=== PATIENT | male | born 1990 | race Caucasian/White ===

== ENCOUNTER 2017-07-25 11:11 | Emergency (ER) | payer SELFPAY ==
[~2017-07-25] VITALS: Ht 172.7 cm; Wt 70.0 kg
[~2017-07-25 11:11] MED LIST: CHLO.12%30 SSP; CLIN150 PO; IBUP800T23 PO
[2017-07-25 11:14] VITALS: BP 155/90; PULSE 76; RESP 18; TEMP 98.5; O2SAT 96
--- NOTE | 2017-07-25 12:45 | PD ---
HPI Chief Complaint: Psychiatric Symptoms Time Seen by Provider: 12:10 Travel History International Travel<30 days: No Contact w/Intl Traveler<30days: No Traveled to known affect area: No History of Present Illness HPI Patient is a 26-year-old male who comes in with his mom because he would like to detox from opioids. He says he injects himself with 25 Dilaudid every night. His mom is concerned that he will kill himself. He denies any suicidal ideation. He says he is worried about the detox symptoms, so he continues to use. He has no medical complaints at this time. He did inject himself just prior to coming in. [facility] Past Medical History Medical History: Denies Significant Hx Diminished Hearing: No Tetanus Vaccination: > 5 Years Influenza Vaccination: No ?: Not Past Surgical History Surgical History: No Previous Surgery Social History Alcohol Use: Yes (PER PT OCCASIONAL DENIES USE TODAY) Tobacco Use: Yes (PKG DAILY) Substance Use: Yes (DILAUDID) Allergies-Medications (Allergen,Severity, Reaction): Coded Allergies: No Known Allergies (Verified Allergy, Mild, 07/25/17) Reported Meds & Prescriptions Reported Meds & Active Scripts Active Peridex Oral Rinse (Chlorhexidine Gluconate) 0.12 % Gretchen 15 Ml SSP BID Ibuprofen 800 Mg Tab 800 Mg PO TID PRN Cleocin (Clindamycin HCl) 150 Mg Cap 300 Mg PO Q6 10 Days Review of Systems General / Constitutional: No: Fever, Chills HENT: No: Headaches, Lightheadedness Cardiovascular: No: Chest Pain or Discomfort Respiratory: No: Shortness of Breath Gastrointestinal: No: Nausea, Vomiting Skin: No Rash, No Change in Pigmentation Neurologic: No: Weakness, Dizziness Physical Exam Narrative GENERAL: Awake and alert, no acute distress. SKIN: Focused skin assessment warm/dry. No wounds or signs of infection. HEAD: Atraumatic. Normocephalic. EYES: Pupils equal and round. No scleral icterus. Extraocular movements intact. ENT: No nasal bleeding or discharge. Mucous membranes pink and moist. CARDIOVASCULAR: Regular rate and rhythm. No murmur appreciated. RESPIRATORY: No accessory muscle use. Clear to auscultation. Breath sounds equal bilaterally. MUSCULOSKELETAL: No obvious deformities. No clubbing. No cyanosis. No edema. NEUROLOGICAL: Awake and alert. No obvious cranial nerve deficits. Motor grossly within normal limits. Normal speech. PSYCHIATRIC: Appropriate mood and affect; insight and judgment normal. Data Data Last Documented VS Vital Signs Date Time Temp Pulse Resp B/P (MAP) Pulse Ox O2 Delivery O2 Flow Rate FiO2 07/25/17 11:14 98.5 76 18 155/90 (111) 96 MDM Medical Decision Making Medical Screen Exam Complete: Yes Emergency Medical Condition: Yes Differential Diagnosis Intoxication versus depression versus encounter for detox Narrative Course Patient is a 26-year-old male who comes in with his mom seeking detox. He adamantly denies any suicidal thoughts at this time. He does say that he wants to quit using Dilaudid, but he does not want to go through withdrawal. His mother, appropriately so is worried about him. I explained to them that we do not have detox capabilities and that he should go to [facility]. We did call them, they do not have any beds at this time, but advised that he come early tomorrow morning and they should be able to get him in. He is advised to stop using drugs. Advised to return anytime for any symptoms or concerns. Mom is comfortable with this plan at this time. Diagnosis Primary Impression: Opioid abuse Referrals: [facility] for appointment Patient Instructions: General Instructions, Narcotic Abuse (ED) Additional Instructions: Go to [facility] tomorrow morning for detox. Return at any time for any worsening symptoms. Disposition: 01 DISCHARGE HOME Condition: Stable Nafisa Price MD Jul 25, 2017 12:45
== END 2017-07-25 12:57 | disposition home or self-care (01) ==
LOC: NEPD 11:11
DX: F11.10 Opioid abuse, uncomplicated (principal); F17.200 Nicotine dependence, unspecified, uncomplicated
CPT/HCPCS: 99282

== ENCOUNTER 2017-07-29 18:11 | Emergency (ER) | payer SELFPAY ==
[2017-07-29 18:24] VITALS: BP 138/83; PULSE 90; RESP 16; TEMP 98.6; O2SAT 100
--- NOTE | 2017-07-29 20:42 | PD ---
HPI Chief Complaint: Injury Time Seen by Provider: 20:31 Travel History International Travel<30 days: No Contact w/Intl Traveler<30days: No Traveled to known affect area: No History of Present Illness HPI 26-year-old [id number] male presents for evaluation of right hand pain. He reports a 1 hour prior to arrival he punched a within wall because he was frustrated. He now has pain in the right hand primarily over the right fourth and fifth metacarpals, throbbing, constant, worse with movement or palpation. He has a small abrasion overlying the dorsum of the right hand, last tetanus vaccination unknown. He denies any other injuries and he has no other complaints at this time. [facility] Past Medical History Diminished Hearing: No ?: Not Social History Alcohol Use: Yes (PER PT OCCASIONAL DENIES USE TODAY) Tobacco Use: Yes (PKG DAILY) Substance Use: Yes (DILAUDID) Allergies-Medications (Allergen,Severity, Reaction): Coded Allergies: No Known Allergies (Verified Allergy, Mild, 07/25/17) Reported Meds & Prescriptions Reported Meds & Active Scripts Active Peridex Oral Rinse (Chlorhexidine Gluconate) 0.12 % Gretchen 15 Ml SSP BID Ibuprofen 800 Mg Tab 800 Mg PO TID PRN Cleocin (Clindamycin HCl) 150 Mg Cap 300 Mg PO Q6 10 Days Review of Systems Musculoskeletal: Positive: Limited ROM, Pain Skin: Positive Other (Positive for abrasion, bleeding) Neurologic: No: Paresthesia Physical Exam Narrative GENERAL: Well-developed well-nourished male in no acute distress SKIN: Warm and dry. Small abrasion with associated ecchymosis on the dorsum of the right hand overlying the fourth and fifth metacarpals. CARDIOVASCULAR: Regular rate and rhythm. No murmur appreciated. RESPIRATORY: No accessory muscle use. Clear to auscultation. Breath sounds equal bilaterally. GASTROINTESTINAL: Abdomen soft, non-tender, nondistended. Hepatic and splenic margins not palpable. MUSCULOSKELETAL: Skin as noted above. Tenderness to palpation to right hand overlying the fourth and fifth metacarpals. There is limited flexion and extension of the right fourth and fifth fingers secondary to pain and bruising. Capillary refill less than 2 seconds all digits right hand. Distal sensation preserved. 2+ radial pulse. NEUROLOGICAL: Awake and alert. No obvious cranial nerve deficits. Motor grossly within normal limits. Normal speech. Data Data Last Documented VS Vital Signs Date Time Temp Pulse Resp B/P (MAP) Pulse Ox O2 Delivery O2 Flow Rate FiO2 07/29/17 18:24 98.6 90 16 138/83 (101) 100 Orders Orders Tetanus/Diphtheria Tox Adult (Tetanus/Di (07/29/17 20:45) Hand, Complete ([id number]) (07/29/17 ) Ice/Cold Pack (07/29/17 20:36) Splint Or Brace Apply/Monitor (07/29/17 21:18) Lidocaine 1% Inj (Xylocaine 1% Inj) (07/29/17 21:30) Lidocaine 1% Inj (Xylocaine 1% Inj) (07/29/17 21:30) Lidocaine 2% Inj (Xylocaine 2% Inj) (07/29/17 21:30) Lidocaine 2% Inj (Xylocaine 2% Inj) (07/29/17 21:30) Hand, Limited (2vws) (07/29/17 ) Mandatory Outpatient Referral (07/29/17 22:24) Ed Discharge Order (07/29/17 22:24) MDM Medical Decision Making Medical Screen Exam Complete: Yes Emergency Medical Condition: Yes Medical Record Reviewed: Yes Differential Diagnosis Fifth metacarpal fracture, sprain, contusion, hematoma Narrative Course X-ray imaging of the right hand will be obtained. Ice pack provided. Tetanus status updated. X-ray imaging reveals FINDINGS: There are acute fractures at the distal fourth and fifth metacarpals. There is anterior and lateral displacement at the distal 5th metacarpal fragment. There is minimal anterior angulation at the distal fourth metacarpal fragment. After consent was obtained a hematoma block was performed and the fracture was reduced and a ulnar gutter splint was applied. Postreduction x-ray reveals some slight improvement in alignment. I discussed with the on-call hand surgeon Dr. Price who would like to see the patient in his office on WednesdayAugust 03, likely will require operative repair. I discussed these recommendations with the patient in great detail. A mandatory outpatient referral has been placed. The patient is stable for discharge. Diagnosis Primary Impression: Right hand fracture Referrals: Hu Price MD Additional Instructions: Do not remove the splint. Tylenol or Motrin for pain. Follow-up with Dr. Price in his office ideally on August 03, call his office on Wednesday to discuss making an appointment. Our case work aide will be calling at some point to help facilitate an appointment. Med/Other Pt SpecificInfo: Orthopedic Instructions Disposition: 01 DISCHARGE HOME Condition: Jaun Sandoval Jul 29, 2017 20:42
[2017-07-29] MEDS ORDERED: TETANUS/DIPHTHERIA TOXOID ADULT 0.5 ML VIAL IM ONE (20:45)
[2017-07-29] MEDS ORDERED: LIDOCAINE HCL 1% 20 ML VIAL INFIL ONE (21:30)
[2017-07-29] MEDS ORDERED: LIDOCAINE HCL 2% 50 ML VIAL NERV BLOCK ONE (21:30)
[2017-07-29] MEDS ORDERED: LIDOCAINE HCL 2% 20 ML VIAL INFIL ONE (21:30)
[2017-07-29] MEDS ORDERED: LIDOCAINE HCL 1% 30 ML VIAL INFIL ONE (21:30)
--- NOTE | 2017-07-29 21:44 | RADRPT ---
EXAM DATE/TIME: 07/29/2017 20:59 [facility] COMPARISON: No previous studies available for comparison. INDICATIONS : Punched a wall. Pain in 5th digit. MEDICAL HISTORY : None. SURGICAL HISTORY : None. ENCOUNTER: Initial ACUITY: 1 day PAIN SCORE: 8/10 LOCATION: Right Hand, 5th digit. FINDINGS: There are acute fractures at the distal fourth and fifth metacarpals. There is anterior and lateral d isplacement at the distal 5th metacarpal fragment. There is minimal anterior angulation at the distal fourth metacarpal fragment. CONCLUSION: Fourth and fifth distal metacarpal fractures. Keo Yo MD on July 29, 2017 at 21:41 Board Certified Radiologist. This report was verified electronically.
--- NOTE | 2017-07-29 22:45 | RADRPT ---
EXAM DATE/TIME: 07/29/2017 22:00 [facility] COMPARISON: HAND RIGHT COMPLETE ([id number]), July 29, 2017, 20:59. INDICATIONS : Post reduction right hand. MEDICAL HISTORY : None. SURGICAL HISTORY : None. ENCOUNTER: Subsequent ACUITY: 1 day PAIN SCORE: 8/10 LOCATION: Right hand FINDINGS: Again noted are the distal fourth and fifth metacarpal fractures. There continues to be anterior angu lation of the distal fifth metacarpal fragment. The fifth metacarpal fracture fragments is otherwise aligned. The fourth medical fracture appears well aligned. CONCLUSION: Anterior angulation of the distal fifth metacarpal fragment. Keo Yo MD on July 29, 2017 at 22:42 Board Certified Radiologist. This report was verified electronically.
== END 2017-07-29 22:43 | disposition home or self-care (01) ==
LOC: NEPD 18:11
DX: S62.304A Unspecified fracture of fourth metacarpal bone, right hand, initial encounter for closed fracture (principal); S62.306A Unspecified fracture of fifth metacarpal bone, right hand, initial encounter for closed fracture; F17.200 Nicotine dependence, unspecified, uncomplicated; W22.01XA Walked into wall, initial encounter; Z23 Encounter for immunization
CPT/HCPCS: 26605; 73120; 73130; 90471; 90714